=== PATIENT | female | born 1935 | race Caucasian/White ===

== ENCOUNTER 2018-07-13 10:40 | Emergency (ER) | payer MEDICARE ==
[~2018-07-13] VITALS: Ht 154.9 cm; Wt 67.1 kg
[2018-07-13] MEDS ORDERED: SIMV10 PO (11:13)
[2018-07-13] MEDS ORDERED: HYDURE500 PO (11:13)
[2018-07-13] MEDS ORDERED: TIOT18 INH (11:13)
[2018-07-13] MEDS ORDERED: LISI5 PO (11:13)
[2018-07-13] MEDS ORDERED: NATURE THYROID (11:14)
[2018-07-13] MEDS ORDERED: FURO20 (11:14)
[2018-07-13] MEDS ORDERED: ASPI81CH PO (11:14)
== END 2018-07-13 13:44 | disposition home or self-care (01) ==
LOC: ER 10:40
DX: S61.412A Laceration without foreign body of left hand, initial encounter (principal); Z23 Encounter for immunization; J45.909 Unspecified asthma, uncomplicated; I10 Essential (primary) hypertension; Z91.013 Allergy to seafood; Z88.0 Allergy status to penicillin; Z88.5 Allergy status to narcotic agent; Z79.899 Other long term (current) drug therapy; Z79.82 Long term (current) use of aspirin; Z86.73 Personal history of transient ischemic attack (TIA), and cerebral infarction without residual deficits; Z87.891 Personal history of nicotine dependence; W22.8XXA Striking against or struck by other objects, initial encounter
CPT/HCPCS: 73130; 90471; 90714; 99283-25